=== PATIENT | male | born 1970 | race Caucasian/White ===

== ENCOUNTER 2017-10-17 20:28 | Inpatient (IN) | payer OTHER ==
[~2017-10-17] VITALS: Ht 177.8 cm; Wt 76.1 kg
[~2017-10-17 20:28] MED LIST: FLEXERIL PO; NOHOMEMEDICATIONS; ULTRAM 50MG TAB50 MG PO
[2017-10-17 20:34] VITALS: BP 134/76
[2017-10-17] MEDS ORDERED: MIRALAX17 GM (20:42)
[2017-10-17] MEDS ORDERED: COLACE100 MG (20:42)
[2017-10-17 20:58] LABS: URINE BILIRUBIN NEGATIVE (Negative); URINE BLOOD 3+ (Negative); URINE CLARITY CLEAR; URINE COLOR YELLOW; URINE GLUCOSE-RANDOM NEGATIVE (Negative); URINE KETONES 1+ (Negative); URINE LEUKOCYTES-REFLEX TRACE (Negative); URINE NITRITE-REFLEX NEGATIVE (Negative); URINE PROTEIN NEGATIVE (Negative); URINE SPECIFIC GRAVITY 1.015 (1.005-1.030); URINE UROBILINOGEN 0.2 E.U./dl (0.2-1.0)
[2017-10-17 21:03] LABS: ABSOLUTE BASOPHILS 0.1 thou/uL (0.0-0.2); ABSOLUTE EOSINOPHILS 0.2 thou/uL (0.0-0.7); ABSOLUTE LYMPHOCYTES 1.4 thou/uL (0.8-5.3); ABSOLUTE MONOCYTES 0.7 thou/uL (0.0-1.2); ABSOLUTE NEUTROPHILS 7.6 thou/uL (1.6-8.1); BASOPHILS 0.5 %; EOSINOPHILS 1.9 %; HEMATOCRIT 40.8 % (42.0-52.0); HEMOGLOBIN 14.1 gm/dL (14.0-18.0); MCH 33.2 pg (26.0-34.0); MCHC 34.7 g/dL (28.0-37.0); MCV 95.8 fL (80.0-100.0); MONOCYTES 6.7 %; MPV 6.9 fl. (7.2-11.1); NUCLEATED RBCS 0 /100WBC; PLATELET COUNT* 240 thou/uL (150-400); POLYS 76.9 %; RBC 4.25 mil/uL (4.50-6.00); RDW-CV 12.7 % (10.5-14.5); WBC 9.9 thou/uL (4.0-11.0)
[2017-10-17 21:07] LABS: SQUAMOUS NONE SEEN /LPF (0-3)
[2017-10-17 21:08] LABS: BACTERIA-REFLEX 1-9 Few /HPF (None Seen); HYALINE CASTS 0-3 Few /LPF (None Seen)
[2017-10-17 21:09] LABS: CRYSTALS None Seen /LPF (None Seen); MUCUS None Seen strn/LPF (None Seen); URINE RBC >20 Many /HPF (0-2); URINE WBC-REFLEX 0-5 Rare /HPF (0-5)
[2017-10-17 21:12] LABS: CALCIUM 8.7 mg/dL (8.5-10.1); CREATININE 2.2 mg/dL (0.6-1.3); POTASSIUM 3.7 mmol/L (3.5-5.1)
[2017-10-17 21:17] LABS: ALBUMIN 3.7 g/dL (3.4-5.0); TOTAL BILIRUBIN 0.7 mg/dL (<0.1-1.0); TOTAL PROTEIN 7.5 g/dL (6.4-8.2)
[2017-10-18 00:05] VITALS: BP 130/70
[2017-10-18 00:20] VITALS: BP 121/64
[2017-10-18 04:00] VITALS: BP 92/59
[2017-10-18 07:56] VITALS: BP 126/75
== END 2017-10-18 13:25 | disposition left against medical advice (07) | DRG 683 ==
LOC: M.ERS 20:28 → M.2W 23:10 → M.TBA-ER 23:10 → M.2W 23:55
PROVIDERS: Nurse Practitioner Family; ADMIT Internal Medicine
DX: N17.9 Acute kidney failure, unspecified (principal); N39.0 Urinary tract infection, site not specified; N13.2 Hydronephrosis with renal and ureteral calculous obstruction; F17.210 Nicotine dependence, cigarettes, uncomplicated; G44.009 Cluster headache syndrome, unspecified, not intractable; N13.1 Hydronephrosis with ureteral stricture, not elsewhere classified; F15.980 Other stimulant use, unspecified with stimulant-induced anxiety disorder; Z53.21 Procedure and treatment not carried out due to patient leaving prior to being seen by health care provider; E86.0 Dehydration; Z79.2 Long term (current) use of antibiotics; Z87.442 Personal history of urinary calculi; Z88.1 Allergy status to other antibiotic agents; Z79.899 Other long term (current) drug therapy

== ENCOUNTER 2018-08-23 02:40 | Emergency (ER) | payer OTHER ==
[~2018-08-23] VITALS: Ht 182.9 cm; Wt 72.6 kg
[~2018-08-23 02:40] MED LIST changes: +COLACE100 MG; +MIRALAX17 GM
[2018-08-23 03:27] VITALS: BP 118/51
== END 2018-08-23 03:30 | disposition home or self-care (01) ==
LOC: M.ERS 02:40
DX: L50.9 Urticaria, unspecified (principal); Z88.1 Allergy status to other antibiotic agents; Z88.8 Allergy status to other drugs, medicaments and biological substances; Z87.442 Personal history of urinary calculi

== ENCOUNTER 2019-12-01 17:20 | Emergency (ER) | payer OTHER ==
[~2019-12-01] VITALS: Ht 177.8 cm; Wt 71.7 kg
[2019-12-01] MEDS ORDERED: DESCOVY 200-251 EACH PO (17:45)
[2019-12-01 18:15] VITALS: BP 126/85
== END 2019-12-01 18:15 | disposition home or self-care (01) ==
LOC: M.ERS 17:20
DX: Z20.2 Contact with and (suspected) exposure to infections with a predominantly sexual mode of transmission (principal); Z87.442 Personal history of urinary calculi; Z88.1 Allergy status to other antibiotic agents; Z88.8 Allergy status to other drugs, medicaments and biological substances